=== PATIENT | female | born 1945 | race Caucasian/White ===

== ENCOUNTER 2017-04-15 12:48 | Inpatient (IN) ==
[2017-04-15] MEDS ORDERED: MORPHINE IV ONE ×2 (13:16→15:16)
[2017-04-15] MEDS ORDERED: FLEXERIL PO ONE (13:16)
[2017-04-15] MEDS ORDERED: ZOFRAN IV ONE (13:16)
--- NOTE | 2017-04-15 14:12 | Diag Imaging Result Doc PS360 ---
EXAM: ANKLE COMPLETE RIGHT HISTORY: fall pain TECHNIQUE: Three views COMPARISON: None. FINDINGS: No fracture. No dislocation. IMPRESSION: No acute bony injury. Electronically signed by Emil Weaver 04/15/2017 2:10 PM
--- NOTE | 2017-04-15 14:12 | Diag Imaging Result Doc PS360 ---
EXAM: PELVIS W/O CONTRAST HISTORY: pain after fall TECHNIQUE: COMPARISON: None. FINDINGS: Neither hip is dislocated. No fracture to either hip. No widening of the pubic symphysis. No pelvic fracture. Prominent degenerative facet hypertrophy in the lower lumbar spine. IMPRESSION: No acute fracture. Electronically signed by Emil Weaver 04/15/2017 2:10 PM
--- NOTE | 2017-04-15 14:14 | Diag Imaging Result Doc PS360 ---
EXAM: KNEE 3 VIEWS RIGHT HISTORY: fall pain s/p replacement TECHNIQUE: Three views COMPARISON: None. FINDINGS: There is a spiral fracture through the distal femoral shaft. Displacement over 1.5 cm. There is angulation of approximately 20 degrees anteriorly. There has been prior orthopedic replacement of the knee. Good alignment of the femoral and tibial components. IMPRESSION: Spiral fracture to the distal femoral shaft. Electronically signed by Emil Weaver 04/15/2017 2:12 PM
--- NOTE | 2017-04-15 14:17 | Diag Imaging Result Doc PS360 ---
EXAM: HEAD/C-SPINE W/O CONTRAST INDICATION: fell down on aspirin likely pelvis injury COMPARISON: None. FINDINGS: Head: There is no definite acute infarct given the limited sensitivity of CT versus MRI. There is no discrete intracranial mass, mass effect, or intracranial hemorrhage. The surrounding soft tissues are essentially unremarkable. The calvaria is intact. C-spine: There is advanced multilevel degenerative disc disease and facet arthropathy with loss of disc space height at multiple levels and marginal osteophyte formation. There are bulky ventral marginal osteophytes at multiple levels suggesting diffuse idiopathic skeletal hypertrophy (DISH). Degenerative changes are causing some degree of central canal and neuroforaminal narrowing at multiple levels. There is no discrete fracture, subluxation, or intrinsic osseous lesion, otherwise. The surrounding soft tissues are essentially unremarkable. IMPRESSION: 1.No evidence of acute intracranial pathology. 2.Multilevel advanced degenerative changes. No definite fracture or other definite acute C-spine injury. Electronically signed by Chava Joe 04/15/2017 2:14 PM
--- NOTE | 2017-04-15 14:20 | Diag Imaging Result Doc PS360 ---
EXAM: FEMUR MIN 2 VIEWS RIGHT HISTORY: pain after fall TECHNIQUE: COMPARISON: None. FINDINGS: No fracture to the proximal or midshaft. There is a spiral fracture distally. IMPRESSION: Fracture to the distal shaft of femur. Electronically signed by Emil Weaver 04/15/2017 2:17 PM
[2017-04-15 16:17] LABS: BASO% 0.4 % (0.0-0.8); EOS# 0.08 X1000 (0.0-0.7); EOS% 0.8 % (0.0-10.0); HEMATOCRIT 38.6 % (37.0-47.0); IMM GRAN# 0.02 X1000 (0.0-0.04); IMM GRAN% 0.2 % (0.0-0.5); LYMPH% 14.8 % (20.5-51.1); MANUAL DIFF NEEDED? YES; MCH 31.1 PG (27-31); MCHC 33.7 g/dL (33-37); MCV 92.3 FL (81-99); MONO# 0.78 X1000 (0.11-0.59); MONO% 8.2 % (1.7-9.3); NEUT% 75.6 % (42.2-75.2); PLT 194 X1000 (130-400); RBC 4.18 XMIL (4.2-5.4)
[2017-04-15 16:17] LABS: INR 1.02; PROTIME 10.7 Seconds (9.2-11.7)
[2017-04-15 16:32] LABS: EOS 2 % (1-10); LYMPHS 19 % (21-51); MONO 4 % (1-9)
--- NOTE | 2017-04-15 16:40 | HISTORY AND PHYSICAL ---
Ms. Montelongo was out working in her garden, getting some squash and she tripped and fell, struck her right side and has a distal spiral femur fracture. Was brought to the emergency room. PAST MEDICAL HISTORY: Apparently she has systemic lupus erythematosus. She is on Plaquenil. She has bulging disk in the lower lumbar spine with chronic lower back pain. She has primary hypothyroidism. History of hypertension. SURGICAL HISTORY: Both knees have been replaced, total knee arthroplasty. She has had 2 C sections. Two weeks ago she had her upper teeth removed with new dentures which she states are not giving her any trouble. SOCIAL HISTORY: 49 years. Two children. Negative for alcohol or tobacco. FAMILY HISTORY: Father and mother with history of CVA, history of diabetes mellitus, history of coronary artery disease. REVIEW OF SYSTEMS: She has gained some weight she said because she had not been able to walk. She denies fever or chills.HEENT: Unremarkable other than oral surgery, upper dentures applied. Respiratory: No increased work of breathing or dyspnea. Cardiovascular: She does not report any chest pain or palpitations. GI/: No change reported in her bowels or voiding. Musculoskeletal/Neurologic: No new focal complaints until this recent injury with the right distal femur fracture. PHYSICAL EXAMINATION: VITAL SIGNS: Temperature 97.8 degrees, pulse 74, respirations 20, blood pressure 165/109. PUPILS: Equal, round. LUNGS: Clear in all lung soto. CARDIOVASCULAR: Regular rhythm and rate without murmur or S3. ABDOMEN: Soft. SKIN: Warm and dry. ABDOMEN: Soft. Positive bowel sounds. Carotid, radial, femoral, pedal pulses 2+ and symmetrical. SKIN: Unremarkable. No pedal edema. Weight 180 pounds, height 5 feet 3 inches. LABS: Pending at this time. Ankle x-ray on the right, no acute bony injury. No fracture or dislocation. The femur x-ray on the right, fracture of the distal shaft of the femur. Head and cervical spine, she did strike the back of her head. No evidence of acute intracranial pathology. Multilevel advanced degenerative changes. No definite fracture or acute C-spine injury. X-ray of the right knee, a spiral fracture to the distal femur shaft. Pelvic CT, no acute fracture. ASSESSMENT AND PLAN: 1. Traumatic fracture to the distal femur shaft, spiral fracture. Plan is internal fixation tomorrow. Try and keep her comfortable and antiemetics if needed. Will make sure she is hydrated. Waiting on her labs to see what her electrolytes, renal function is. 2. History of hypertension. We will watch her blood pressure. 3. History of hypothyroidism, appears to be euthyroid on exam. We will check T4 and TSH. 4. History of bulging disk with chronic lower back pain. 5. History of systemic lupus erythematosus. LIST OF MEDICATIONS: Medicines at home. She is on Mobic 15 mg a day. Cozaar 50 mg a day. Synthroid 100 mcg daily. Plaquenil 200 mg p.o. b.i.d. Gabapentin 300 mg b.i.d. Prozac 20 mg a day and aspirin 81 mg a day. So we are going to hold the Plaquenil, we will hold the Synthroid and we are going to hold the Mobic. We will continue the gabapentin and I think we will continue the Prozac and the baby aspirin. For pain control we will let her have OxyIR 5 mg 1-2 q.4 hours p.r.n. pain. We will give her morphine 2-4 mg IV q.2 hours p.r.n. severe pain. We will run normal saline at 85 mL an hour and we will give her Maddox catheter. I think she has one already in. cc: Christian Garcia MD
[2017-04-15 16:43] LABS: CALCIUM 8.9 mg/dL (8.8-10.2); POTASSIUM 4.5 mmol/L (3.5-5.1); TOTAL BILIRUBIN 0.44 mg/dL (0.20-1.00); TOTAL PROTEIN 6.9 g/dL (6.3-8.3)
[2017-04-15] MEDS ORDERED: NS 1,000 ML IV SCH (17:21)
[2017-04-15] MEDS ORDERED: TYLENOL PO PRN (17:21)
[2017-04-15] MEDS ORDERED: ZOFRAN IV PRN (17:21)
[2017-04-15] MEDS ORDERED: HALDOL IV PRN (17:31)
[2017-04-15] MEDS ORDERED: OXY IR PO PRN (17:31)
[2017-04-15] MEDS ORDERED: LOVENOX SUBQ SCH (18:00)
[2017-04-15] MEDS: LR 1,000 ML IV SCH (18:22)
[2017-04-15] MEDS: MORPHINE IV PRN ×2 (18:23→23:45)
[2017-04-15 18:56] LABS: POTASSIUM 4.6 mmol/L (3.5-5.1)
[2017-04-15 19:45] LABS: URINE CULTURE NEEDED? NO; URINE MICRO REVIEW NEEDED? NO; URINE SOURCE CATH
[2017-04-15 19:47] LABS: UR EPITHELIAL CELLS <10 /HPF (<10); URINE BACTERIA NEGATIVE /HPF; URINE RBC <10 /HPF (<10); URINE WBC <10 /HPF (<10)
[2017-04-15 19:48] LABS: BILIRUBIN URINE NEGATIVE (NEGATIVE); BLOOD URINE TRACE (NEGATIVE); COLOR YELLOW; GLUCOSE URINE NEGATIVE (NEGATIVE); LEUKOCYTES URINE NEGATIVE (NEGATIVE); NITRITE URINE NEGATIVE (NEGATIVE); PH URINE 5.5; PROTEIN URINE 50 mg/dL (NEGATIVE); SP GRAVITY URINE 1.021; TURBIDITY URINE CLEAR (CLEAR); UROBILINOGEN URINE NORMAL (NORMAL)
[2017-04-15] MEDS: LOPRESSOR PO SCH (21:00)
[2017-04-15] MEDS ORDERED: NEURONTIN PO SCH (21:00)
[2017-04-15] MEDS: COZAAR PO SCH ×2 (22:30→22:36)
[2017-04-15] MEDS: TYLENOL PO SCH (22:30)
[2017-04-15] MEDS: PLAQUENIL PO SCH (22:36)
[2017-04-15] MEDS: NEURONTIN PO SCH (22:36)
[2017-04-16] MEDS: TYLENOL PO SCH ×3 (05:41→22:08)
[2017-04-16 06:01] LABS: MANUAL DIFF NEEDED? NO
--- NOTE | 2017-04-16 06:20 | EKG Report ---
Test Performed on : 04/16/2017 05:34:44 AM Test Reason : chest pain Blood Pressure : / mmHG Vent. Rate : 095 BPM Atrial Rate : 095 BPM P-R Int : 182 ms QRS Dur : 086 ms QT Int : 332 ms P-R-T Axes : 064 002 031 degrees QTc Int : 417 ms Normal sinus rhythm. Possible Anterior infarct , age undetermined Abnormal ECG No previous ECGs available Confirmed by Jeremias ORTEGA, Anthony Buckner ([id number]) on 04/20/2017 2:13:37 PM
[2017-04-16 06:23] LABS: INR 1.03; PROTIME 10.8 Seconds (9.2-11.7); PTT 29.4 Seconds (22.0-36.0)
[2017-04-16] MEDS: MORPHINE IV PRN ×3 (06:25→17:52)
[2017-04-16] MEDS: SYNTHROID PO SCH (06:26)
[2017-04-16 06:27] LABS: BASO% 0.4 % (0.0-0.8); EOS% 1.2 % (0.0-10.0); HEMATOCRIT 37.7 % (37.0-47.0); HEMOGLOBIN 12.3 g/dL (12.0-16.0); IMM GRAN# 0.02 X1000 (0.0-0.04); IMM GRAN% 0.2 % (0.0-0.5); LYMPH# 1.98 X1000 (1.2-3.4); LYMPH% 24.2 % (20.5-51.1); MCH 31.1 PG (27-31); MCHC 32.6 g/dL (33-37); MCV 95.2 FL (81-99); MONO# 1.13 X1000 (0.11-0.59); MONO% 13.8 % (1.7-9.3); MPV 10.5 FL (7.4-10.4); NEUT% 60.2 % (42.2-75.2); PLT 158 X1000 (130-400); RBC 3.96 XMIL (4.2-5.4)
[2017-04-16] MEDS: LR 1,000 ML IV SCH ×2 (06:28→10:16)
[2017-04-16 06:34] LABS: ALBUMIN 3.9 g/dL (3.5-5.0); CALCIUM 8.8 mg/dL (8.8-10.2); MAGNESIUM 2.1 mg/dL (1.5-2.7); POTASSIUM 4.5 mmol/L (3.5-5.1); TOTAL BILIRUBIN 0.51 mg/dL (0.20-1.00); TOTAL PROTEIN 6.6 g/dL (6.3-8.3)
[2017-04-16 06:52] LABS: FREE T4 1.35 ng/dL (0.93-1.70)
--- NOTE | 2017-04-16 08:33 | CONSULTATION ---
DATE OF CONSULTATION: 04/16/2017 CHIEF COMPLAINT: Right thigh pain. HISTORY OF PRESENT ILLNESS: Ms. Montelongo is a 71-year-old female who presented to the emergency department yesterday for right thigh pain. She fell, unfortunately, at home and twisted her right leg and has mainly pain just in the right leg. She denies any pain of bilateral upper extremities or left lower extremity. She does have a history of knee replacement on this side back around 2004 and has been doing really well from that standpoint. She is unable to ambulate. In the ER, they diagnosed her with a distal femur fracture and the hospitalist service admitted her to the hospital. PAST MEDICAL HISTORY: Systemic lupus erythematosus, hypothyroidism, hypertension. PAST SURGICAL HISTORY: Bilateral total knee arthroplasty, section x2, recent teeth extraction with denture placement. SOCIAL HISTORY: She denies any alcohol or drug abuse. FAMILY HISTORY: Positive for stroke, diabetes, and heart disease. REVIEW OF SYSTEMS: Positive for right leg pain. All other systems are essentially negative. PHYSICAL EXAMINATION: General: Well-developed, well-nourished female in no acute distress. Head and Neck: Normocephalic, atraumatic. Respirations: Nonlabored. Cardiovascular: Regular rate. Abdomen is nondistended. Bilateral upper extremities: No tenderness to palpation. Right lower extremity examination: Tenderness to palpation around the knee. She has a little bit of swelling. No skin abrasions, ulcerations, or blisters around that area. Her total knee incision scar is well healed. She has good dorsiflexion and plantar flexion of the ankle and the foot, 2+ PT pulse and good sensation to light touch to all the toes. No tenderness to palpation to the left lower extremity. RADIOGRAPHS: Right knee films reveal a right distal femur spiral fracture with displacement. The total knee implant looks to be in good position and does not appear to be loose. ASSESSMENT: Right distal femur supracondylar fracture. PLAN: I went over with Ms. Montelongo about her injury. It looks like the total knee is in place and secure. I think she just broke above it. I recommended open reduction internal fixation of right supracondylar femur fracture. I went over with her the procedure, risks, benefits, potential complications. Risks include, but are not limited to, infection, wound healing problems, damage to nerves, arteries, veins, numbness, malunion, nonunion, hardware related issues, continued pain, DVT, and anesthesia-related risks. After discussing these with the patient, she expressed understanding and wished to proceed. We will get her on the schedule for today. She will be n.p.o. We will plan on getting this fixed. cc: Demetrius Olguin MD
[2017-04-16] MEDS ORDERED: COZAAR PO SCH (09:00)
[2017-04-16] MEDS ORDERED: ASPIRIN PO SCH (09:00)
--- NOTE | 2017-04-16 09:20 | Diag Imaging Result Doc PS360 ---
EXAM: CHEST-PORTABLE HISTORY: femur fx TECHNIQUE: Portable upright AP COMPARISON: None. FINDINGS: The lungs are well expanded. The heart is not enlarged. The vessels are not distended. No infiltrates. No contusions or pneumothoraces. IMPRESSION: Negative chest. Electronically signed by Emil Weaver 04/16/2017 9:17 AM
[2017-04-16] MEDS: PRILOSEC PO SCH (12:14)
[2017-04-16] MEDS: LOPRESSOR PO SCH ×2 (12:14→22:14)
[2017-04-16] MEDS: PROZAC PO SCH (12:14)
[2017-04-16] MEDS: PLAQUENIL PO SCH ×2 (12:15→22:07)
[2017-04-16] MEDS ORDERED: DIPRIVAN 1% ONE (12:40)
[2017-04-16] MEDS ORDERED: XYLOCAINE-MPF 2% ONE (12:40)
[2017-04-16] MEDS ORDERED: KEFZOL 2 GM/D5W 2 GM/50 ML IVPB ONE (13:04)
[2017-04-16] MEDS ORDERED: MARCAINE 0.5% ONE (13:37)
[2017-04-16] MEDS ORDERED: XYLOCAINE-MPF 1% ONE (13:37)
[2017-04-16] MEDS ORDERED: ROBINUL ONE ×2 (13:59→14:57)
[2017-04-16] MEDS ORDERED: OFIRMEV 1000 MG/ISOTONIC SOLN 1,000 MG/100 ML BOTTLE ONE (14:11)
[2017-04-16] MEDS ORDERED: DECADRON ONE (14:31)
[2017-04-16] MEDS ORDERED: TORADOL ONE (14:31)
--- NOTE | 2017-04-16 14:50 | PROGRESS NOTE ---
DATE: 04/16/2017 SUBJECTIVE: She is comfortable, feels good. She has not yet gone to surgery yet. She had a distal femoral fracture. OBJECTIVE: Vital Signs: She remains afebrile. Temperature 99 degrees, pulse 83, respirations 16, blood pressure 107/47. Neck: CVP is less than 6 cm. Lungs: Clear in all lung soto. Cardiovascular: Regular rhythm and rate without murmur or S3. Abdomen: Soft. Pedal pulses 2+ and symmetrical. Right foot with good capillary refill. Breathing comfortably. ASSESSMENT AND PLAN: 1. Spiral femoral fracture. She is supposed to get repair with internal fixation per Dr. Olguin today. Her pain medication appears to be adequate. Respiratory status and cardiovascular status look good. 2. Blood pressure is well controlled. 3. History of hypothyroidism. She appears euthyroid. 4. I have reviewed her orders. I do not see any change. At this point, she is on lactated Ringer's 75 mL an hour. cc: Christian Garcia MD
[2017-04-16] MEDS ORDERED: ZEMURON ONE ×2 (14:55→15:50)
[2017-04-16] MEDS ORDERED: NEOSTIGMINE ONE (14:57)
[2017-04-16] MEDS ORDERED: HYDROGEN PEROXIDE SOLUTION ONE (16:04)
[2017-04-16] MEDS ORDERED: FENTANYL ONE (16:07)
[2017-04-16] MEDS ORDERED: MILK OF MAGNESIA PO PRN (16:35)
[2017-04-16] MEDS ORDERED: ZOFRAN IV PRN (16:35)
[2017-04-16] MEDS ORDERED: HESPAN 500 ML ONE (16:52)
--- NOTE | 2017-04-16 16:53 | OPERATIVE NOTE ---
PROCEDURE DATE: 04/16/2017 PREOPERATIVE DIAGNOSIS: Right periprosthetic supracondylar femur fracture. POSTOPERATIVE DIAGNOSIS: Right periprosthetic supracondylar femur fracture. PROCEDURE: Right open reduction, internal fixation of supracondylar periprosthetic femur. SURGEON: Dr. Demetrius Olguin. ELECTRIC MOTOR REPAIRER: Ara Camejo, nurse practitioner. KT Nascimento. ANESTHESIA: General with LMA. ESTIMATED BLOOD LOSS: About 500 mL. IMPLANT: Synthes 12 hole distal femoral locking condylar plate. DISPOSITION: PACU. INDICATION FOR PROCEDURE: Ms. Liss Montelongo is a 71-year-old female who presented to the emergency department yesterday after a fall in the garden where she fractured her distal femur around a periprosthetic total knee. She was admitted per the hospitalist service and made n.p.o. after midnight. I discussed with her about surgical intervention. She expressed understanding and wished to proceed. DESCRIPTION OF PROCEDURE: Ms. Montelongo was identified in the preoperative holding area. Right femur was marked as correct surgical site. She was then wheeled to the operating room, placed supine on the operating table. All bony prominences well padded. She was induced under general anesthesia. LMA was placed. Tourniquet was placed to the right. Kept supine on her own bed. Induced under general anesthesia. LMA was placed. She was moved to the OR table. All bony prominences well padded. Right lower extremity was then prepped with chlorhexidine gluconate scrub and then ChloraPrep, and draped in normal sterile fashion. Surgical pause was performed when we identified the correct patient, correct side, and the correct procedure. Preoperative antibiotics were given which was IV Ancef 2 g. I started with a lateral longitudinal incision over the distal femur and dissection was carried down through the subcutaneous layer which was pretty thick, down to the IT band. We split the IT band and then used a submuscular approach underneath the vastus lateralis, and elevated it up to expose our fractured area. Unfortunately it was pretty comminuted, there was this big spiral piece and it was comminuted anteriorly. I exposed then down on the distal end of the femur where our plate was going to be, and then I ran a Adame up the lateral aspect where our plate was going to be as well proximally. It did take awhile to get a good reduction on this since it was a spiral fracture and there was some comminution there. We ended up having to put it over a triangle, use some bumps, and then also used a [place]ge clamp with the plate in place. After that though, we did get a good reduction. I used a whirlybird to pull proximal bone to the plate and temporarily secure the plate both proximally and distally. Fluoroscopic imaging showed that everything looked to be in good position. We then put locking screws, 5 of them, proximally, and then we placed locking screws distally in the plate. I then removed the clamp. We had very good bony stability overall. Final images showed that we had good reduction and what appeared to be very good overall alignment in both AP and lateral views. We then irrigated everything copiously with normal saline. We placed those proximal screws through stab incisions, and these were closed with nylon. The open distal femur incision IT band was closed with 0 Vicryl, and then 0 Vicryl for the subcutaneous and 2-0 Vicryl for the subcutaneous, and then mirella on the skin. Adaptic, 4x4s, ABD, and Jose Maria was placed. The patient was then wheeled from general anesthesia, moved to her own bed and taken to the PACU in stable condition. Postoperatively she will be touchdown weightbearing right lower extremity. She will receive 24 hours of IV antibiotics postoperatively. She will start physical therapy over the weekend. cc: Demetrius Olguin MD
[2017-04-16] MEDS: ASPIRIN PO SCH (22:07)
[2017-04-16] MEDS: PERIDEX MT SCH (22:07)
[2017-04-16] MEDS: NEURONTIN PO SCH (22:07)
[2017-04-16] MEDS: COLACE PO SCH (22:08)
[2017-04-16] MEDS: COZAAR PO SCH (22:14)
[2017-04-16] MEDS: KEFZOL 1 GM/D5W 1 GM/50 ML IVPB IV SCH (22:20)
[2017-04-17] MEDS: LR 1,000 ML IV SCH ×2 (03:47→14:17)
[2017-04-17] MEDS: KEFZOL 1 GM/D5W 1 GM/50 ML IVPB IV SCH ×2 (05:37→14:18)
[2017-04-17] MEDS: LOVENOX SUBQ SCH (05:37)
[2017-04-17] MEDS: SYNTHROID PO SCH ×2 (05:37→06:27)
[2017-04-17] MEDS: TYLENOL PO SCH ×3 (05:38→21:07)
[2017-04-17 05:43] LABS: AGAP 9; BUN 13 mg/dL (8-22); CALCIUM 7.8 mg/dL (8.8-10.2); CHLORIDE 100 mmol/L (98-107); COSMO 267; POTASSIUM 4.9 mmol/L (3.5-5.1); SODIUM 132 mmol/L (136-145); TCO2 23 mmol/L (25-35)
[2017-04-17] MEDS: MORPHINE IV PRN ×2 (06:36→13:44)
[2017-04-17 07:13] LABS: HEMATOCRIT 22.3 % (37.0-47.0); HEMOGLOBIN 7.4 g/dL (12.0-16.0)
--- NOTE | 2017-04-17 08:29 | PROGRESS NOTE ---
DATE: 04/17/2017 SUBJECTIVE: Ms. Montelongo is postop day 1 from right ORIF distal femur. She seems to be doing great. Pain is well controlled. She is in good spirits this morning. She says she can even lift her leg. OBJECTIVE: Right lower extremity exam: Dressing is clean, dry, and intact. She is actually able to perform a straight leg raise and, also, she is already able to bend the knee really well this morning. She is neurovascularly intact right lower extremity. ASSESSMENT: Status post right open reduction internal fixation distal femur. PLAN: Ms. Montelongo is doing fantastic. She is taylor and starting to do some of her own therapy in bed. She can do a straight leg raise on postop day 1, which I think is pretty amazing. She is going to get up with therapy. She is to touchdown weightbearing right lower extremity. She wants to go to [facility] upon discharge from the hospital. I discussed with her that we will probably get all of that set up Wednesday or Wednesday. Her hemoglobin and hematocrit were a little bit low this morning. I discussed that with her, and we will watch that, and I will leave it up to the medicine team if they want to transfuse her if she needs it. cc: Demetrius Olguin MD
[2017-04-17] MEDS: PERIDEX MT SCH ×3 (09:53→21:10)
[2017-04-17] MEDS: COLACE PO SCH ×2 (09:53→21:07)
[2017-04-17] MEDS: PLAQUENIL PO SCH ×2 (09:54→21:07)
[2017-04-17] MEDS: LOPRESSOR PO SCH ×2 (09:54→21:10)
[2017-04-17] MEDS: PROZAC PO SCH (09:54)
[2017-04-17] MEDS: PRILOSEC PO SCH (09:54)
[2017-04-17] MEDS: FERROUS SULFATE PO SCH ×2 (09:55→09:56)
--- NOTE | 2017-04-17 11:21 | PROGRESS NOTE ---
DATE: 04/17/2017 Ms. Montelongo is feeling good today. She is able to lift her right leg off the bed. She is using the trapeze bar. Does not have much appetite and did not eat much breakfast. Remains afebrile. Temp 97.9 degrees, pulse 80, respirations 20, blood pressure 125/53. HEENT: Pupils are equal, round. Lungs: Are clear in all lung soto. Cardiovascular: Regular rhythm and rate without murmur or S3. Abdomen: Soft. Skin: Is warm and dry. Urine output was over 3.5 L from yesterday. Hematocrit 22, yesterday it was 37. Hemoglobin was 7.4, so we may give her some blood. Will discuss with orthopedic. ASSESSMENT AND PLAN: 1. Status post right open reduction, internal fixation of the distal right femur doing well. 2. Microcytic anemia. Acute blood loss anemia. If hemoglobin less than 7, I think we need to give her a unit of blood. We will discuss with Dr. Olguin. 3. Blood pressure is well controlled. 4. History of hypothyroidism, appears to be euthyroid. Review orders. Getting oxycodone IR 5 mg p.o. q.3 hours p.r.n. pain. Also gets morphine p.r.n. She is on Lovenox 40 mg subcutaneous daily. Ferrous sulfate 325 mg a day. Prozac 20 mg a day. Neurontin 600 mg at bedtime. Hydroxychloroquine 200 mg p.o. b.i.d. Getting lactated Ringer's at 75 mL q. hour. Synthroid 100 mcg daily. Cozaar 50 mg a day. cc: Christian Garcia MD
[2017-04-17] MEDS: OXY IR PO PRN ×3 (11:27→19:12)
[2017-04-17] MEDS: NEURONTIN PO SCH (21:07)
[2017-04-17] MEDS: ASPIRIN PO SCH (21:07)
[2017-04-17] MEDS: COZAAR PO SCH (21:11)
[2017-04-18 05:43] LABS: MANUAL DIFF NEEDED? NO
[2017-04-18] MEDS: LR 1,000 ML IV SCH ×3 (05:51→20:27)
[2017-04-18] MEDS: TYLENOL PO SCH ×3 (05:51→20:28)
[2017-04-18] MEDS: LOVENOX SUBQ SCH (05:51)
[2017-04-18] MEDS: SYNTHROID PO SCH ×2 (05:52→07:11)
[2017-04-18 06:00] LABS: BASO% 0.3 % (0.0-0.8); EOS# 0.19 X1000 (0.0-0.7); HEMATOCRIT 20.7 % (37.0-47.0); HEMOGLOBIN 6.7 g/dL (12.0-16.0); LYMPH# 2.41 X1000 (1.2-3.4); LYMPH% 37.4 % (20.5-51.1); MCH 30.5 PG (27-31); MCHC 32.4 g/dL (33-37); MCV 94.1 FL (81-99); MONO# 0.62 X1000 (0.11-0.59); MONO% 9.6 % (1.7-9.3); MPV 10.9 FL (7.4-10.4); NEUT% 49.7 % (42.2-75.2); PLT 101 X1000 (130-400)
[2017-04-18 06:07] LABS: AGAP 10; BUN 11 mg/dL (8-22); CALCIUM 7.8 mg/dL (8.8-10.2); CHLORIDE 101 mmol/L (98-107); COSMO 270; POTASSIUM 4.3 mmol/L (3.5-5.1); SODIUM 136 mmol/L (136-145); TCO2 25 mmol/L (25-35)
[2017-04-18] MEDS: OXY IR PO PRN (06:32)
[2017-04-18] MEDS: PLAQUENIL PO SCH ×2 (08:18→20:28)
[2017-04-18] MEDS: PRILOSEC PO SCH (08:18)
[2017-04-18] MEDS: PERIDEX MT SCH (08:18)
[2017-04-18] MEDS: PROZAC PO SCH (08:18)
[2017-04-18] MEDS: LOPRESSOR PO SCH ×2 (08:18→20:28)
[2017-04-18] MEDS: COLACE PO SCH ×2 (08:19→20:28)
[2017-04-18] MEDS: FERROUS SULFATE PO SCH (08:19)
--- NOTE | 2017-04-18 10:03 | PROGRESS NOTE ---
DATE: 04/18/2017 SUBJECTIVE: Liss Montelongo is a 71-year-old female who is postoperative day 2 from a right femur ORIF. She complains of continued pain in her legs but no new complaints. OBJECTIVE: She is a well-developed, well-nourished female. She is alert, oriented, and cooperative with the exam. Exam of her leg reveals the dressing is clean, dry, intact. Her leg is neurovascularly intact. Her vital signs are stable. She is afebrile. Her hematocrit is 28.7 and her hemoglobin is 6.7. ASSESSMENT: Status post right femur open reduction and internal fixation with acute blood loss anemia. PLAN: We will plan on transfusing her 2 units. She states she has a history of lupus and blood transfusion causes her severe chills. Therefore, we will use a blood warmer and warm blankets for her during the transfusion. We will also change her dressing today. Dr. Olguin or his PA will be back to see her tomorrow. cc: Elvin Mcclain MD
[2017-04-18] MEDS: MORPHINE IV PRN (10:10)
--- NOTE | 2017-04-18 13:58 | PROGRESS NOTE ---
DATE: 04/18/2017 SUBJECTIVE: Ms. Montelongo is feeling good. Pain is controlled. Breathing comfortably. She did have quite a bit of pain yesterday but got some sleep last night, ate good breakfast this morning. OBJECTIVE: Vital signs: Temperature 98.6 degrees, pulse 73, respirations 18, blood pressure 103/44. HEENT: Pupils are equal, round. Lungs: Are clear in all lung soto. Cardiovascular: Regular rhythm and rate without murmur or S3. Abdomen: Soft. Skin: Is warm and dry. Urine output looks like it was over 9 L. LAB: White count 6440, hematocrit 20, hemoglobin 6.7. Sodium 136, potassium 4.3, chloride 101, bicarb 25, BUN 11, creatinine 0.9, calcium 7.8. ASSESSMENT AND PLAN: 1. Status post right femur open reduction, internal fixation. Acute blood loss anemia. We are going to give her 2 units of packed red blood cells. 2. History of lupus. Will use blood warmer and warm blankets for her during transfusion since transfusion caused her to have some chills. 3. Blood pressure well controlled. 4. History of hypothyroidism. Appears to be euthyroid on exam. REVIEW OF ORDERS: I do not see any change. She getting OxyContin IR 5 mg q.3 hours p.r.n., Prilosec 40 mg a day. She has the morphine p.r.n., Lopressor 25 mg p.o. q.12 hours, Cozaar 50 mg at bedtime, Synthroid 100 mcg daily, lactate Ringer is going at 75 mL an hour, hydroxychloroquine 200 mg b.i.d., Neurontin 600 mg at bedtime, Prilosec 20 mg daily, ferrous sulfate 325 mg a day. cc: Christian Garcia MD
[2017-04-18] MEDS: NEURONTIN PO SCH (20:28)
[2017-04-18] MEDS: ASPIRIN PO SCH (20:28)
[2017-04-18] MEDS: COZAAR PO SCH (20:28)
[2017-04-19] MEDS: SYNTHROID PO SCH ×2 (05:47→07:39)
[2017-04-19] MEDS: LOVENOX SUBQ SCH (05:47)
[2017-04-19] MEDS: OXY IR PO PRN ×3 (05:47→13:12)
[2017-04-19] MEDS: TYLENOL PO SCH ×2 (05:47→13:11)
[2017-04-19 06:46] LABS: HEMOGLOBIN 8.9 g/dL (12.0-16.0)
[2017-04-19 07:19] LABS: HEMATOCRIT 27.3 % (37.0-47.0)
[2017-04-19] MEDS: PERIDEX MT SCH ×2 (07:50→09:55)
[2017-04-19] MEDS: LR 1,000 ML IV SCH ×2 (07:51→15:30)
--- NOTE | 2017-04-19 08:14 | PROGRESS NOTE ---
DATE: 04/19/2017 SUBJECTIVE DATA: Ms. Montelongo is postop day 3 from an ORIF of the distal femur. She seems to be doing really well. She says she is a little bit down today but her pain is well controlled. She is just getting a little upset that she is not getting around as well as she would like. She did get up with physical therapy on Wednesday into the chair. They did not get her up yesterday. OBJECTIVE DATA: Right Lower Extremity Examination: The dressing is clean, dry , and intact. I did remove the dressing and look underneath. The incision is well approximated. There is no erythema or drainage noted. It seems to be healing well. She was able to perform a straight leg raise even against resistance. She can flex the knee very well this morning. She has a strong pedal pulse and good sensation to the right lower extremity. Good color and good capillary refill. ASSESSMENT: Status post right open reduction and internal fixation of the distal femur. PLAN: Ms. Montelongo is doing really well. She has been doing her own physical therapy in the bed and has started getting up to the chair and back to the bed with a walker. She is still touchdown weightbearing of the right lower extremity. The plan is to get her to [facility] upon discharge from the hospital. We are hoping to get that done Wednesday or Wednesday of this week. Her hemoglobin and hematocrit are back up this morning after a transfusion to 8.9 and 27.3. Ms. Montelongo states she is ready to be discharged from the hospital and start making some progress. Dictated by CARMELINA Fuentes for Demetrius Olguin MD cc: CARMELINA Fuentes MD MTDD
[2017-04-19] MEDS: PROZAC PO SCH (09:55)
[2017-04-19] MEDS: PLAQUENIL PO SCH (09:55)
[2017-04-19] MEDS: LOPRESSOR PO SCH (09:55)
[2017-04-19] MEDS: FERROUS SULFATE PO SCH (09:55)
[2017-04-19] MEDS: PRILOSEC PO SCH (09:55)
[2017-04-19] MEDS: COLACE PO SCH (09:55)
[2017-04-19] MEDS ORDERED: XARELTO PO ONE (10:23)
--- NOTE | 2017-04-19 12:42 | DISCHARGE SUMMARY ---
ADMISSION DATE: 04/15/2017 DISCHARGE DATE: 04/19/2017 PRIMARY CARE PHYSICIAN: Dr. Jacqueline Colunga. HISTORY AND HOSPITAL COURSE: She was out working in her garden, getting some squash, and she tripped and fell and struck her right side. Had a spiral fracture of her right femur. Femur x- ray on 04/15, spiral fracture distally, fracture of the distal shaft of the femur. Dr. Olguin evaluated and performed open reduction internal fixation. She had synthesis and fixation of supracondylar periprosthetic femur and they put in a locking condylar plate. She has done well postop. Tolerating physical therapy and felt she could go to [facility] on 04/19/2017. DISCHARGE MEDICATIONS: She will be on Tylenol 1000 mg q.8 hours p.r.n., aspirin 81 mg a day, docusate or Colace 100 mg b.i.d., ferrous sulfate 325 mg daily, Prozac 20 mg daily, Neurontin 600 mg at bedtime, Plaquenil 200 mg b.i.d., Synthroid 100 mcg daily, Cozaar 50 mg at bedtime, milk of magnesia 30 mL daily, Lopressor 25 mg b.i.d., omeprazole 40 mg daily, oxycodone she will get 5 mg q.4 hours p.r.n. She will be on Xarelto 10 mg p.o. daily for another 21 days. cc: Christian Garcia MD
[2017-04-19 15:34] VITALS: BP 132/60
[2017-04-20] MEDS ORDERED: XARELTO PO SCH (06:00)
--- NOTE | 2017-04-20 07:51 | DISCHARGE SUMMARY ---
ADMISSION DATE: 04/15/2017 DISCHARGE DATE: 04/19/2017 ADMISSION DIAGNOSIS: 1. Right Distal Femur Fracture DISCHARGE DIAGNOSIS: 1. Right Distal Femur Fracture with ORIF CONSULTATIONS: Dr. Olguin for ORIF of the right distal femur. SURGERIES AND PROCEDURES: On 04/16/2017, surgery performed by Dr. Olguin. Right open reduction, internal fixation of the supracondylar periprosthetic femur secondary to a right periprosthetic supracondylar femur fracture. No complications noted from the surgery. There was an estimated 500 mL blood loss. Post surgery treatment was touchdown weightbearing right lower extremity, 24 hours of IV antibiotics postoperatively, and physical therapy over the weekend. HOSPITAL COURSE: Ms. Liss Montelongo is a 71-year-old female with a medical history of systemic lupus erythematous, hypertension, hypothyroidism, bulging disk in the lower lumbar spine with chronic lower back pain. Apparently was out in her [employer] gathering squash. Apparently she tripped and fell, struck the right side of her hips and a acquired a distal spiral femur fracture verified by pelvic CT and femur x-ray. She was admitted. Dr. Olguin was consulted on 04/15 and then on 04/16/2017 she had an operation which included an right open reduction internal fixation of the supracondylar periprosthetic femur. She did have a 500 mL blood loss, and during her stay received 2 units of packed red blood cells. The lowest her hemoglobin and hematocrit had gotten to was 6.7 and 20.7 and it is up to 8.9 and 27.32. Vital signs essentially remained stable. The lowest she got was 92/31 prior to receiving blood, and currently is at 138/60. She will be discharged today to [facility] and will need to follow up with Jacqueline Colunga MD, her primary care provider as outpatient and will need to follow up with Dr. Olguin. PHYSICAL EXAMINATION: Discharge Vital Signs: Temperature 98.4 degrees, heart rate 78, respiratory rate 18, blood pressure 138/60. O2 saturation 97% on room air. DISCHARGE MEDICATIONS: 1. Aspirin 81 mg p.o. nightly. 2. Prozac 20 mg p.o. daily. 3. Neurontin 600 mg p.o. nightly. 4. Plaquenil 200 mg p.o. twice daily. 5. Synthroid 100 mcg p.o. daily. 6. Cozaar 50 mg p.o. nightly. 7. Mobic 15 mg p.o. daily. 8. Ferrous sulfate 325 mg p.o. daily. 9. We will need to add Xarelto for DVT prophylaxis post surgery. We will do 10 mg daily. DISCHARGE ACTIVITY: 1. Physical therapy and touchdown weightbearing of the right lower extremity per Dr. Olguin. 2. Discharge diet-Regular diet. DISPOSITION: [facility] rehab. DISCHARGE INSTRUCTIONS: She will need to follow up with Dr. Olguin as outpatient in 2-4 weeks and will need to find a followup with primary care provider, Dr. Jacqueline Colunga. She will need to continue DVT prophylaxis, Xarelto and change dressing on the right leg. Dictated by CARMELINA Mcneill for Christian Garcia MD cc: CARMELINA Mcneill MD Justin Daigre, MD Sarah E. Styers, MD [facility]
--- NOTE | 2017-05-13 11:06 | PROVIDER DOCUMENTATION ---
This chart was entered by Willian Herman Scribe, acting as scribe for Tenisha Simmons MD. HPI-Musculoskeletal Pain/Inj - GENERAL Chief Complaint: Hip Injury Stated Complaint: FALL/POSS HIP FRACTURE Time Seen by Provider: 04/15/17 13:04 Source: patient - HX OF PRESENT ILLNESS-MUSKULOSKELTAL Nature of Presenting Problem: [patient is a 71 y/o F that presents to the ER with right hip and knee pain after falling backwards in her garden trying to pick squash for dinner because she wanted squash. She denies headache, neck or back pain. patient was unable to ambulate. patient denies loc. Quality of Pain: reports: dull, sharp Severity in ED: moderate Onset/Duration: abrupt, just prior to arrival Timing: still present, constant Modifying Factors: worse with: movement, palpation Any recent injury?: No Locality of Occurance: Home Similar Symptoms Previously?: No Recently seen or treated by another doctor?: No - FALL INJURY Location of Pain/Injury: reports: lower extremity (right hip, right knee) Pain Radiation: reports: no radiation Reason for Fall: reports: lost balance, slipped Symptoms prior to fall:: reports: none Loss of Consciousness: no loss of consciousness Injury Associated Symptoms: reports: joint pain, unable to bear weight, trouble walking. denies: back/neck pain, headaches, nausea, shortness of breath, vomiting Review of Systems - Adult - REVIEW OF SYSTEMS - ADULT Constitutional: reports: no symptoms reported Eyes: denies: decreased vision, blurred vision, double vision Ears, Nose, Mouth & Throat: reports: no symptoms reported Cardiovascular: denies: chest pain, palpitations, syncope Respiratory: denies: cough, shortness of breath, wheezing Gastrointestinal: denies: abdominal pain, nausea, vomiting Genitourinary: reports: no symptoms reported Musculoskeletal: reports: joint pain. denies: back pain, neck pain Integumentary: reports: no symptoms reported Neurological: reports: no symptoms reported Psychiatric: reports: no symptoms reported Endocrine: reports: no symptoms reported Hematologic/Lymphatic: reports: no symptoms reported Allergic/Immunologic: reports: no symptoms reported All Other Systems: Reviewed and Negative Past History - Adult - PAST MEDICAL HISTORY-ADULT Review of Records: reports: Old Records Reviewed, Nursing Assessment Review, Medications Reviewed Cardiovascular: reports: HTN Neurological: reports: other (bulging disc) Endocrine/Immune: reports: lupus, thyroid disorder (hyper) - PRIOR SURGERIES/PROCEDURES Surgical/Procedure History: reports: , joint replacement (total knee right knee) - IMMUNIZATION STATUS Childhood Immunizations: See Nurse Assessment Flu Vaccine: See Nurse Assessment - FAMILY HISTORY Family History: reviewed, not pertinent - SOCIAL HISTORY Smoking: non-smoker Living Situation: family Physical Exam-Injury Related - Physical Exam-Injury Related Initial Vital Signs Reviewed: Yes General Appearance: alert, mild distress, moderate distress Eyes: PERRL/EOMI, pink conjunctivae Head, Ears, Nose, Mouth & Throat: normocephalic/atraumatic, moist mucous membranes, normal ENT inspection Neck: full range of motion, normal inspection Respiratory: chest non-tender, lungs clear, normal breath sounds, no respiratory distress, no accessory muscle use Cardiovascular: regular rate, rhythm, no edema, no murmur Abdominal Exam: normal bowel sounds, non tender, soft Extremity: tenderness (right hip and knee), other (decreased ROM to right leg, shortened and externally rotated) Integumentary: normal color, warm/dry. 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, no motor/sensory deficits Psych/Mental Status: normal mood/affect, normal thought content, normal thought process, oriented x 3 - Glascow Coma Score Best Eye Response ([place]): (4) open spontaneously Best Verbal Response ([place]): (5) oriented Best Motor Response ([place]): (6) obeys commands Jon Total: 15 Progress - PLAN OF CARE/RESULTS Progress/Plan/Lab Results: Vital Signs - 8 hr 04/15/17 13:07 Temperature 97.8 F Pulse Rate 74 Respiratory Rate 20 Blood Pressure 148/86 O2 Sat by Pulse Oximetry 100 Orders Category Date Time Status Maddox Cath Insertion ORDERED Care 04/15/17 13:16 Active IV Insertion ORDERED Care 04/15/17 13:16 Completed ANKLE COMPLETE RIGHT [RAD] Stat Exams 04/15/17 13:16 Completed FEMUR MIN 2 VIEWS RIGHT [RAD] Stat Exams 04/15/17 13:16 Completed HEAD/C-SPINE W/O CONTRAST [CT] Stat Exams 04/15/17 13:16 Completed KNEE 3 VIEWS RIGHT [RAD] Stat Exams 04/15/17 13:16 Completed PELVIS W/O CONTRAST [CT] Stat Exams 04/15/17 13:16 Completed CBC WITH DIFF [HEME] Stat Lab 04/15/17 14:47 Ordered COMPREHENSIVE METABOLIC PANEL [CHEM] Stat Lab 04/15/17 14:47 Ordered PROTIME WITH INR PL [COAG] Stat Lab 04/15/17 15:16 Ordered TYPE & SCREEN [BBK] Stat Lab 04/15/17 15:16 Uncollected Cyclobenzaprine [Flexeril] Med 04/15/17 13:16 Discontinued 10 mg PO NOW ONE Morphine Med 04/15/17 13:16 Discontinued 4 mg IV NOW ONE Morphine Med 04/15/17 15:16 Discontinued 4 mg IV NOW ONE Ondansetron [Zofran] Med 04/15/17 13:16 Discontinued 4 mg IV NOW ONE Vital Signs Temp Pulse Resp BP Pulse Ox 04/15/17 13:07 97.8 F 74 20 148/86 100 Penicillins Allergy (Verified 04/15/17 13:12) Unknown Aspirin 81 mg PO DAILY 04/15/17 Fluoxetine [Prozac] 20 mg PO DAILY 04/15/17 Gabapentin 300 mg PO BID 04/15/17 Hydroxychloroquine [Plaquenil] 200 mg PO BID 04/15/17 Levothyroxine Sodium [Synthroid] 100 microgm PO DAILY 04/15/17 Losartan [Cozaar] 50 mg PO DAILY 04/15/17 Meloxicam [Mobic] 15 mg PO DAILY 04/15/17 I&O 04/14/17 04/15/17 04/16/17 06:59 06:59 06:59 Output Total 280 / 280 Balance -280 / -280 - XRAY 1 XRAY: Right XRAY Study: Femur, Knee Impression: Abnormal XRAY Interpretation: fx to distal shaft of femur(spiral) 2 XRAY: Right XRAY Study: Ankle Impression: Normal XRAY Interpretation: nad - CT/MRI 1 CT Study: Pelvis Impression: Normal CT Results: nad 2 CT Study: Cervical Spine, Head Impression: Abnormal CT Results: no hemorrhage, multilevel advanced degenerative changes - CONSULTS/PCP/HOSPITALIST Notification #1 *Consult/PCP/Hospitalist*: Time Discussed: 15:12 Reason/Comments: femur fx Consult Disposition: Admit (to hospitalist and he will consult) #2 Consult: Crissy OCSME with hospitalist Time Discussed: 15:12 Reason/Comments: accepted for Consult Disposition: Admit Departure - Departure Date of Disposition Decision: 04/15/17 Time of Disposition Decision: 15:16 DIAGNOSIS: Closed femur fracture, Fall Disposition: ADMITTED INPATIENT 09 Certified Medical Emergency: Emergent Condition: Stable Referrals and Follow-Ups: Jacqueline Colunga MD [Primary Care Provider] - - Critical Care Note This patient required my direct & personal management of CC.: No This chart was documented by the indicated scribe, (Willian Herman, Scribe) and accurately reflects the services I performed and decisions made by me, Tenisha Simmons MD, as attested by the provider's signature.
== END 2017-04-19 15:35 ==
LOC: ED 12:48 → 4N 16:59
PROVIDERS: ATTEND Emergency Medicine